=== PATIENT | female | born 1990 | race Caucasian/White ===

== ENCOUNTER 2016-05-07 15:46 | Emergency (ER) | payer MEDICAID ==
[2016-05-07] MEDS ORDERED: ONDANSETRON 4 MG/2 ML VIAL ONE (15:56)
[2016-05-07] MEDS ORDERED: NS 1,000 ML IV ONE ×2 (16:07→16:23)
[2016-05-07] MEDS ORDERED: ONDANSETRON 4 MG/2 ML VIAL IVP ONE (16:07)
[2016-05-07 16:11] VITALS: RESP 18; TEMP 98.5
--- NOTE | 2016-05-07 16:23 | UCPHY ---
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 She tells me she was seen in the clinic earlier today and diagnosed with a urinary tract infection. She denies fever, back pain , chest pain or shortness of breath. Her main complaint is ongoing nausea with vomiting. The vomiting is nonbilious nonbloody. Denies any significant abdominal pain. Past Medical History:Pancreatitis Past Surgical History: denies surgical history Social History: Denies use of drugs, except for daily marijuana use, last smoked marijuana last night, denies alcohol or tobacco Family History: Noncontributory ROS REVIEW OF SYSTEMS: A comprehensive 10 point review of systems is otherwise negative aside from elements mentioned in the history of present illness. Exam Constitutional triage nursing summary reviewed, vital signs reviewed, awake/ alert. Eyes normal conjunctivae and sclera, EOMI, PERRLA. HENT normal inspection, atraumatic, moist mucus membranes, no epistaxis, neck supple/ no meningismus, no raccoon eyes. Respiratory clear to auscultation bilaterally, normal breath sounds, no respiratory distress, no wheezing. Cardiovascular rate normal, regular rhythm, no murmur, no edema, distal pulses normal. Gastrointestinal soft, non-tender, no rebound, no guarding, normal bowel sounds, no distension, no pulsatile mass. Genitourinary no CVA tenderness. Musculoskeletal no midline vertebral tenderness, full range of motion, no calf swelling, no tenderness of extremities, no meningismus, good pulses, neurovascularly intact. Skin pink, warm, & dry, no rash, skin atraumatic. Neurologic awake, alert and oriented x 3, AAOx3, moves all 4 extremities equally, motor intact, sensory intact, CN II-XII intact, normal cerebellar, normal vision, normal speech. Psychiatric normal mood/affect. Heme/Lymph/Immune no lymphadenopathy. Differential Diagnosis: Includes but is not limited to in a particular order, dehydration, electrolyte abnormality, acute nausea vomiting from pancreatitis, acute nausea vomiting from urinary tract infection, pyelonephritis, kidney infection, marijuana induced nausea vomiting Medical Decision Making: This patient had an IV established obtain blood work, patient be hydrated IV fluids, patient received Zofran for nausea. She does also appear anxious she received IV Ativan which may help with her nausea as well. Re-evaluation: 1741: Re-examination at this time this patient is resting comfortably no acute distress. Appears well nontoxic. Not vomiting. Abdomen remained soft. Blood work reviewed and is reassuring urinalysis reviewed is somewhat dirty catch however is nitrite positive. She does have urinary tract infection symptoms. I have sent a culture and IV Rocephin 1 g been given to her. 1817: Re-evaluation at this time this patient is resting comfortably she is not vomiting she has received IV Rocephin for urinary tract infection. I prescribed her Keflex. She understands she develops worsening pain, fever, vomiting to return to the urgent care/emergency room. At this time she appears well she p.o. challenge well no abdominal pain. Feels well enough to go home. She did receive IV Zofran IV Ativan IV fluids. IV Rocephin. Source: Patient - Personal History LMP (Females 10-55): 22-28 Days Ago - Medical/Surgical History Hx Asthma: No Hx Chronic Respiratory Disease: No Hx Diabetes: No Hx Cardiac Disease: No Hx Renal Disease: No Hx Cirrhosis: No Hx Alcoholism: No Hx HIV/AIDS: No Hx Splenectomy or Spleen Trauma: No Other PMH: med hx-pancreatitis. surg-none - Family History Significant Family History: No pertinent family hx - Social History Smoking Status: Former smoker Constitutional: Initial Vital Signs Temperature (C) 36.9 C 05/07/16 15:55 Heart Rate 57 L 05/07/16 15:55 Respiratory Rate 18 05/07/16 15:55 Blood Pressure 151/85 H 05/07/16 15:55 O2 Sat (%) 97 05/07/16 15:55 O2 Delivery Mode Room Air Allergies/Adverse Reactions: No Known Allergies Allergy (Verified 05/07/16 16:08) Home Medications: Medication Instructions Recorded Cephalexin [Keflex] 500 mg PO Q6H #28 cap 05/07/16 Ondansetron HCl [Zofran] 4 mg PO Q4-6PRN PRN #10 tablet 05/07/16 Medical Decision Making - Data Points Laboratory Results: Laboratory Results 05/07/16 16:00 05/07/16 16:00 05/07/16 05/07/16 17:10 16:00 WBC 9.12 10^3/uL (3.80-9.50) RBC 4.67 10^6/uL (4.18-5.33) Hgb 12.9 g/dL (12.6-16.3) Hct 39.7 % (38.0-47.0) MCV 85.0 fL (81.5-99.8) MCH 27.6 L pg (27.9-34.1) MCHC 32.5 g/dL (32.4-36.7) RDW 14.5 % (11.5-15.2) Plt Count 185 10^3/uL (150-400) MPV 12.0 H fL (8.7-11.7) Neut % (Auto) 64.5 % (39.3-74.2) Lymph % (Auto) 27.9 % (15.0-45.0) [place] % (Auto) 6.4 % (4.5-13.0) Eos % (Auto) 0.5 L % (0.6-7.6) Baso % (Auto) 0.5 % (0.3-1.7) Nucleat RBC Rel Count 0.0 % (0.0-0.2) Absolute Neuts (auto) 5.88 10^3/uL (1.70-6.50) Absolute Lymphs (auto) 2.54 10^3/uL (1.00-3.00) Absolute Monos (auto) 0.58 10^3/uL (0.30-0.80) Absolute Eos (auto) 0.05 10^3/uL (0.03-0.40) Absolute Basos (auto) 0.05 10^3/uL (0.02-0.10) Absolute Nucleated RBC 0.00 10^3/uL (0-0.01) Immature Gran % 0.2 % (0.0-1.1) Immature Gran # 0.02 10^3/uL (0.00-0.10) Sodium 142 mEq/L (134-144) Potassium 3.4 L mEq/L (3.5-5.2) Chloride 100 mEq/L (97-110) Carbon Dioxide 22 mEq/l (22-31) Anion Gap 20 H mEq/L (8-16) BUN 20 mg/dL (7-23) Creatinine 0.7 mg/dL (0.6-1.0) Estimated GFR > 60 Glucose 100 mg/dL (70-100) Calcium 9.6 mg/dL (8.5-10.4) Total Bilirubin 1.2 mg/dL (0.1-1.4) Conjugated Bilirubin 0.4 mg/dL (0.0-0.5) Unconjugated Bilirubin 0.8 mg/dL (0.0-1.1) AST 24 IU/L (14-46) ALT 26 IU/L (9-52) Alkaline Phosphatase 62 IU/L (38-126) Total Protein 7.8 g/dL (6.3-8.2) Albumin 4.4 g/dL (3.5-5.0) Lipase 64.0 IU/L (23-300) Beta HCG, Qual NEGATIVE Urine Color YELLOW Urine Appearance CLOUDY Urine pH 6.0 (5.0-7.5) Ur Specific [place] >= 1.030 (1.002-1.030) Urine Protein 2+ H (NEGATIVE) Urine Ketones 3+ H (NEGATIVE) Urine Blood 1+ H (NEGATIVE) Urine Nitrate POSITIVE H (NEGATIVE) Urine Bilirubin NEGATIVE (NEGATIVE) Urine Urobilinogen 0.2 EU (0.2-1.0) Ur Leukocyte Esterase 2+ H (NEGATIVE) Urine RBC 3-5 H /hpf (0-3) Urine WBC 25-50 H /hpf (0-3) Ur Epithelial Cells 3+ H /lpf (NONE-1+) Urine Bacteria 3+ H /hpf (NONE SEEN) Urine Mucus 3+ H /lpf (NONE-1+) Urine Yeast 1+ H /hpf (NONE SEEN) Ur Culture Indicated? INDICATED H (NI) Urine Glucose NEGATIVE (NEGATIVE) Medications Given: Discontinued Medications Sodium Chloride (Ns) 1,000 mls @ 0 mls/hr IV ONCE ONE PRN Reason: Wide Open Stop: 05/07/16 16:08 Last Admin: 05/07/16 16:05 Dose: 1,000 mls Sodium Chloride (Ns) 1,000 mls @ 0 mls/hr IV ONCE ONE PRN Reason: Wide Open Stop: 05/07/16 16:24 Last Admin: 02/10/17 16:50 Dose: 1,000 mls Ceftriaxone Sodium/Dextrose (Rocephin 1 Gm (Premix)) 50 mls @ 100 mls/hr IV EDNOW ONE PRN Reason: Protocol Stop: 05/07/16 18:08 Last Admin: 05/07/16 17:57 Dose: Not Given Lorazepam (Ativan Injection) 1 mg IVP EDNOW ONE Stop: 05/07/16 16:25 Last Admin: 05/07/16 16:40 Dose: 1 mg Ondansetron HCl (Zofran) 4 mg IVP EDNOW ONE Stop: 05/07/16 16:08 Last Admin: 05/07/16 16:05 Dose: 4 mg Departure - Departure Disposition: Home, Routine, Self-Care Clinical Impression: UTI (urinary tract infection) Qualifiers: Urinary tract infection type: acute cystitis Hematuria presence: with hematuria Qualifier Code: (N30.01) Acute cystitis with hematuria Condition: Good Instructions: Urinary Tract Infection in Women (ED), Acute Nausea and Vomiting (ED) Additional Instructions: 1. Drink lots of fluids stay well-hydrated 2. return to the urgent care or emergency room if develops any worsening symptoms questions or concerns. This includes worsening abdominal pain, fever, vomiting Referrals: STEPHANI MCKINNEY [Primary Care Provider] - As per Instructions Prescriptions: Cephalexin [Keflex] 500 mg PO Q6H #28 cap Ondansetron HCl [Zofran] 4 mg PO Q4-6PRN PRN #10 tablet PRN Reason: Nausea/Vomiting, Use 1st - PQRS PQRS Measurement: n/a
[2016-05-07] MEDS ORDERED: LORazepam 2 MG/ML INJ IVP ONE (16:24)
[2016-05-07 16:32] LABS: % IMMATURE GRANULYOCYTES 0.2 % (0.0-1.1); ABSOLUTE IMMATURE GRANULOCYTES 0.02 10^3/uL (0.00-0.10); ADD DIFF? NO; ADD MORPH? NO; ADD SCAN? NO; ATYPICAL LYMPHOCYTE FLAG 30 (0-99); FRAGMENT RBC FLAG 0 (0-99); HEMATOCRIT 39.7 % (38.0-47.0); HEMOGLOBIN 12.9 g/dL (12.6-16.3); LEFT SHIFT FLG 0 (0-99); LIPEMIA HEMOLYSIS FLAG 80 (0-99); MEAN CELL HEMOGLOBIN 27.6 pg (27.9-34.1); MEAN CELL HEMOGLOBIN CONCENTR. 32.5 g/dL (32.4-36.7); PLATELET CLUMPS FLAG 10 (0-99); PLATELET COUNT 185 10^3/uL (150-400); RED BLOOD CELL COUNT 4.67 10^6/uL (4.18-5.33); RED CELL DISTRIBUTION WIDTH 14.5 % (11.5-15.2)
[2016-05-07 16:41] LABS: ALANINE AMINOTRANSFERASE 26 IU/L (9-52); ALBUMIN 4.4 g/dL (3.5-5.0); ALKALINE PHOSPHATASE 62 IU/L (38-126); ANION GAP 20 mEq/L (8-16); ASPARTATE AMINOTRANSFERASE 24 IU/L (14-46); BILIRUBIN,TOTAL 1.2 mg/dL (0.1-1.4); BILIRUBIN-CONJUGATED 0.4 mg/dL (0.0-0.5); BILIRUBIN-UNCONJUGATED 0.8 mg/dL (0.0-1.1); CALCIUM 9.6 mg/dL (8.5-10.4); CARBON DIOXIDE 22 mEq/l (22-31); CHLORIDE 100 mEq/L (97-110); CREATININE 0.7 mg/dL (0.6-1.0); GLOMERULAR FILTRATION RATE > 60; GLUCOSE 100 mg/dL (70-100); POTASSIUM 3.4 mEq/L (3.5-5.2); SODIUM 142 mEq/L (134-144); TOTAL PROTEIN 7.8 g/dL (6.3-8.2)
[2016-05-07 17:18] LABS: COLOR YELLOW; LEUKOCYTE ESTERASE,URINE 2+ (NEGATIVE); NITRITE,URINE POSITIVE (NEGATIVE)
[2016-05-07 17:33] LABS: WBC,URINE 25-50 /hpf (0-3)
[2016-05-07 17:34] LABS: BACTERIA 3+ /hpf (NONE SEEN); MUCUS 3+ /lpf (NONE-1+); YEAST 1+ /hpf (NONE SEEN)
[2016-05-07] MEDS ORDERED: cefTRIAXone 1 GM VIAL ONE (17:50)
[2016-05-07] MEDS ORDERED: NS 100 ML BAG (MINI-BAG) IV ONE (17:50)
[2016-05-07 21:03] VITALS: O2SAT 100
[2016-05-07 21:04] VITALS: BP 126/84; PULSE 58
== END 2016-05-07 18:40 | disposition home or self-care (01) ==
LOC: CED 15:46
DX: N39.0 Urinary tract infection, site not specified (principal)
CPT/HCPCS: 80048-PO; 80076-PO; 81003-PO; 81015-PO; 83690-PO; 84703-PO; 85025-PO; 96361-PO; 96365-PO; 96375-PO; 99215-PO; G0463-PO; J0696; J2405

== ENCOUNTER 2016-09-16 10:20 | Emergency (ER) | payer SELFPAY ==
[2016-09-16] MEDS ORDERED: NS 1,000 ML IV ONE ×2 (10:28→11:35)
[2016-09-16] MEDS ORDERED: ONDANSETRON 4 MG/2 ML VIAL IVP ONE (10:30)
[2016-09-16] MEDS ORDERED: HALOPERIDOL LACT 5 MG/ML INJ IVP ONE ×2 (10:45→12:41)
[2016-09-16] MEDS ORDERED: PROMETHAZINE HCL 25 MG/ML INJ IVP ONE (10:47)
[2016-09-16 10:53] LABS: % IMMATURE GRANULYOCYTES 0.3 % (0.0-1.1); ABSOLUTE IMMATURE GRANULOCYTES 0.04 10^3/uL (0.00-0.10); ADD DIFF? NO; ADD MORPH? NO; ADD SCAN? NO; ATYPICAL LYMPHOCYTE FLAG 0 (0-99); FRAGMENT RBC FLAG 0 (0-99); HEMATOCRIT 35.9 % (38.0-47.0); HEMOGLOBIN 11.8 g/dL (12.6-16.3); LEFT SHIFT FLG 0 (0-99); LIPEMIA HEMOLYSIS FLAG 80 (0-99); MEAN CELL HEMOGLOBIN 27.4 pg (27.9-34.1); MEAN CELL HEMOGLOBIN CONCENTR. 32.9 g/dL (32.4-36.7); MEAN CELL VOLUME 83.5 fL (81.5-99.8); MEAN PLATELET VOLUME 11.8 fL (8.7-11.7); PLATELET CLUMPS FLAG 0 (0-99); PLATELET COUNT 241 10^3/uL (150-400); RED CELL DISTRIBUTION WIDTH 14.6 % (11.5-15.2)
[2016-09-16 11:05] LABS: ALANINE AMINOTRANSFERASE 22 IU/L (9-52); ALBUMIN 4.6 g/dL (3.5-5.0); ALKALINE PHOSPHATASE 66 IU/L (38-126); ANION GAP 20 mEq/L (8-16); ASPARTATE AMINOTRANSFERASE 22 IU/L (14-46); BILIRUBIN,TOTAL 1.3 mg/dL (0.1-1.4); BILIRUBIN-CONJUGATED 0.4 mg/dL (0.0-0.5); BILIRUBIN-UNCONJUGATED 0.9 mg/dL (0.0-1.1); CARBON DIOXIDE 21 mEq/l (22-31); CHLORIDE 103 mEq/L (97-110); CREATININE 0.6 mg/dL (0.6-1.0); GLOMERULAR FILTRATION RATE > 60; GLUCOSE 114 mg/dL (70-100); POTASSIUM 3.7 mEq/L (3.5-5.2); SODIUM 144 mEq/L (134-144); TOTAL PROTEIN 8.1 g/dL (6.3-8.2)
--- NOTE | 2016-09-16 11:13 | EDPHY ---
H & P Stated Complaint: N/V x 2 days marijuana use prior to onset .hx of same Time Seen by Provider: 09/16/16 10:34 HPI/ROS: CHIEF COMPLAINT: Bilious vomiting HISTORY OF PRESENT ILLNESS: This is a 26-year-old female who reports that she developed vomiting 24 hours ago. She describes multiple bouts of bilious vomiting and abdominal pain. No diarrhea. No documented fever. No blood in the vomit. Also complaining of severe abdominal discomfort. She reports she has had similar symptoms approximately 2 times a year. Her father reports that she was diagnosed with pancreatitis many years ago. She does have history of alcohol abuse. She reports daily marijuana use. Denies illicit drug use. Patient denies any recent travel. No diarrhea. No urinary complaints. No lightheadedness or dizziness. No fever, chills, chest pain, shortness of breath, palpitations. REVIEW OF SYSTEMS: Aside from elements discussed in the HPI, a comprehensive 10-point review of systems was reviewed and is negative. PAST MEDICAL HISTORY: Pancreatitis. SOCIAL HISTORY: Positive marijuana use. Prior history of alcohol abuse. VITAL SIGNS Reviewed by me. No hypertension or tachycardia. GENERAL: Well-developed, well-nourished, patient is holding a emesis basin with bilious vomitus. No blood. During the examination she is spitting frequently into the emesis basin. HEENT: Atraumatic. Eyes: No icterus, no injection. Mouth: Tacky mucous membranes. No erythema or lesions. Neck: supple with no adenopathy. LUNGS: Clear to auscultation bilaterally, no wheezes, rhonchi or rales. CARDIAC: Regular rate and rhythm, no rubs, murmurs or gallops. ABDOMEN: Nondistended. Voluntary guarding throughout. Diffusely tender with epigastric and lower abdominal tenderness most significant. BACK: No CVA tenderness. EXTREMITIES: No trauma. No edema. Range of motion is normal throughout. NEURO: Alert and oriented, grossly nonfocal. SKIN: Warm and dry, no rash. PSYCHIATRIC: Normal mentation, no agitation. - Personal History LMP (Females 10-55): 22-28 Days Ago Current Tetanus Diphtheria and Acellular Pertussis (TDAP): Yes - Medical/Surgical History Hx Asthma: No Hx Chronic Respiratory Disease: No Hx Diabetes: No Hx Cardiac Disease: No Hx Renal Disease: No Hx Cirrhosis: No Hx Alcoholism: No Hx HIV/AIDS: No Hx Splenectomy or Spleen Trauma: No Other PMH: med hx-pancreatitis. surg-none. Marijuana use. Frequent vomiting cyclic - Social History Smoking Status: Current every day smoker Constitutional: Initial Vital Signs Heart Rate 52 L 09/16/16 10:25 Respiratory Rate 20 09/16/16 10:25 Blood Pressure 143/83 H 09/16/16 10:25 O2 Sat (%) 98 09/16/16 10:25 O2 Delivery Mode Room Air Allergies/Adverse Reactions: No Known Allergies Allergy (Verified 09/16/16 10:37) Home Medications: Medication Instructions Recorded Ondansetron HCl [Zofran] 4 mg PO Q4-6PRN PRN #10 tablet 05/07/16 Ondansetron Odt [Zofran Odt 4 mg 4 mg PO Q6 PRN #8 tab 09/16/16 (RX)] Promethazine HCl [Phenergan 25mg 25 mg PO BID PRN #10 tab 09/16/16 (*)] Medical Decision Making ED Course/Re-evaluation: IV was established. Patient received Zofran as well as Phenergan. Laboratory evaluation demonstrates a normal lipase, normal LFTs, patient is slightly dehydrated with a CO2 [place] [address]. Not . Patient reexamined after 1 liter of saline. Pain has much improved; nausea improving also. Up to bathroom. Haldol and Toradol given 2nd liter given. After 2nd liter of NS, patient is feeling quite well. Pain resolved. Tolerating po's without vomiting. Discharged with zofran and phenergan prescriptions. Strongly advised regarding cessation of cannabinoids. Differential Diagnosis: After obtaining the patients history and performing an examination, differential diagnosis considered included but was not limited to appendicitis, cholecystitis, gastritis, pancreatitis, cannaboid hyperemesis syndrome, kidney stones, urinary tract infections and other causes. - Data Points Laboratory Results: Laboratory Results 09/16/16 10:42 09/16/16 10:42 09/16/16 09/16/16 12:10 10:42 Urine Color YELLOW Urine Appearance CLEAR Urine pH 6.0 (5.0-7.5) Ur Specific [place] >= 1.030 (1.002-1.030) Urine Protein 2+ H (NEGATIVE) Urine Ketones 1+ H (NEGATIVE) Urine Blood NEGATIVE (NEGATIVE) Urine Nitrate NEGATIVE (NEGATIVE) Urine Bilirubin NEGATIVE (NEGATIVE) Urine Urobilinogen 0.2 EU EU (0.2-1.0) Ur Leukocyte Esterase NEGATIVE (NEGATIVE) Urine RBC 3-5 /hpf H /hpf (0-3) Urine WBC 10-15 /hpf H /hpf (0-3) Ur Epithelial Cells 2+ /lpf H /lpf (NONE-1+) Urine Bacteria 1+ /hpf H /hpf (NONE SEEN) Urine Mucus 3+ /lpf H /lpf (NONE-1+) Urine Glucose NEGATIVE (NEGATIVE) Ethyl Alcohol < 10 mg/dL mg/dL (0-10) Medications Given: Discontinued Medications Diphenhydramine HCl (Benadryl Injection) 25 mg IVP EDNOW ONE Stop: 09/16/16 10:46 Last Admin: 09/16/16 11:03 Dose: 25 mg Haloperidol Lactate (Haldol Injection) 2.5 mg IVP EDNOW ONE Stop: 09/16/16 10:46 Last Admin: 09/16/16 11:11 Dose: Not Given Haloperidol Lactate (Haldol Injection) 2.5 mg IVP EDNOW ONE Stop: 09/16/16 12:42 Last Admin: 09/16/16 12:50 Dose: 2.5 mg Sodium Chloride (Ns) 1,000 mls @ 0 mls/hr IV ONCE ONE PRN Reason: Wide Open Stop: 09/16/16 10:29 Last Admin: 09/16/16 10:40 Dose: 1,000 mls Sodium Chloride (Ns) 1,000 mls @ 0 mls/hr IV ONCE ONE PRN Reason: Wide Open Stop: 09/16/16 11:36 Last Admin: 09/16/16 11:38 Dose: 1,000 mls Ketorolac Tromethamine (Toradol) 15 mg IVP EDNOW ONE Stop: 09/16/16 12:42 Last Admin: 09/16/16 12:50 Dose: 15 mg Ondansetron HCl (Zofran) 4 mg IVP EDNOW ONE Stop: 09/16/16 10:31 Last Admin: 09/16/16 10:45 Dose: 4 mg Promethazine HCl (Phenergan) 12.5 mg IVP EDNOW ONE Stop: 09/16/16 10:48 Last Admin: 09/16/16 11:00 Dose: 12.5 mg Departure - Departure Disposition: Home, Routine, Self-Care Clinical Impression: Nausea & vomiting Qualifiers: Vomiting type: unspecified Vomiting Intractability: non-intractable Qualified Code(s): R11.2 - Nausea with vomiting, unspecified Condition: Good Instructions: Acute Nausea and Vomiting (ED) Additional Instructions: You been given a prescription for Zofran to use as needed for recurrent nausea and vomiting. You have also been given a prescription for Phenergan to use as needed for nausea and vomiting. Phenergan may sometimes make you somewhat sleepy. For your abdominal pain, nausea, vomiting, I suggested you start with a bland diet and advance as tolerated. This means start with clear liquids such as water, Gatorade, juice, flat non- caffeinated soda. If you tolerate clear liquids, then you may add bland foods such as bananas, rice, or toast. If you do not have any worsening of your symptoms, you may begin to resume a regular diet. I am concerned that your symptoms may represent cannabinoid hyperemesis syndrome. I would suggest that you stop using marijuana products and stop smoking marijuana. If your symptoms recur and are not managed by the above medications, you may return to the emergency department. Referrals: STEPHANI MCKINNEY [Primary Care Provider] - As per Instructions Stand Alone Forms: Work Excuse Prescriptions: Ondansetron Odt [Zofran Odt 4 mg (RX)] 4 mg PO Q6 PRN #8 tab PRN Reason: Nausea Promethazine HCl [Phenergan 25mg (*)] 25 mg PO BID PRN #10 tab PRN Reason: nausea and vomiting
[2016-09-16 11:35] VITALS: RESP 16
[2016-09-16 12:05] LABS: ETHANOL SERUM < 10 mg/dL (0-10)
[2016-09-16 12:23] LABS: COLOR YELLOW; LEUKOCYTE ESTERASE,URINE NEGATIVE (NEGATIVE); NITRITE,URINE NEGATIVE (NEGATIVE)
[2016-09-16 12:33] LABS: BACTERIA 1+ /hpf (NONE SEEN); MUCUS 3+ /lpf (NONE-1+)
[2016-09-16] MEDS ORDERED: KETOROLAC 15 MG/1 ML SDV IVP ONE (12:41)
[2016-09-16 13:19] VITALS: BP 113/66; PULSE 59; TEMP 98.8; O2SAT 97
== END 2016-09-16 13:23 | disposition home or self-care (01) ==
LOC: CED 10:20
DX: R11.2 Nausea with vomiting, unspecified (principal); F17.200 Nicotine dependence, unspecified, uncomplicated
CPT/HCPCS: 80048-PO; 80076-PO; 81003-PO; 81015-PO; 83690-PO; 84703-PO; 85025-PO; 96374; G0480; J1200; J1885; J2405; J2550

== ENCOUNTER 2017-02-09 23:25 | Emergency (ER) | payer MEDICAID ==
[2017-02-09] MEDS ORDERED: ONDANSETRON 4 MG/2 ML VIAL IVP ONE (23:35)
[2017-02-09 23:38] VITALS: RESP 15; TEMP 98.4
--- NOTE | 2017-02-09 23:39 | EDPHY ---
H & P Time Seen by Provider: 02/09/17 23:34 HPI/ROS: CC: upper abdominal pain and vomiting HPI: This 27-year-old female with past medical history of pancreatitis, as well as vomiting thought to be due to marijuana use, presents to the emergency department tonlona complaining of epigastric pain and vomiting that started 3 days ago then resolved. She states the pain started up again tonight at 8:00 p.m.. She has been having nausea and vomiting as well. She states she has not used marijuana since the weekend. She does not feel that her prior episodes of abdominal pain and vomiting or tonight's episode is due to marijuana. The vomiting is worse with food. She has not had a fever. The pain is severe and is localized to the upper abdominal area. She has not had a fever. She denies diarrhea but has been mildly constipated. She denies dysuria. She is currently sexually active but uses condoms and denies . She has had vaginal discharge as well as scant vaginal bleeding today even though her last menstrual period was just 2 weeks ago. She is 1 para 0 having had a miscarriage many years ago. She has a follow-up appointment with her primary care provider at [facility] this Tuesday (2 days). REVIEW OF SYSTEMS: Constitutional: No fever, no chills. Eyes: No discharge. ENT: No sore throat. Respiratory: No cough, no shortness of breath. Cardiac: No chest pain, no palpitations. Gastrointestinal: See HPI. Genitourinary: No hematuria. Musculoskeletal: No back pain. Skin: No rashes. Neurological: No headache. Source: Patient Exam Limitations: Other (Groaning in pain. Limited answers.) - Personal History LMP (Females 10-55): 8-14 Days Ago - Medical/Surgical History PMH: PMH: Pancreatitis, anemia, cyclical vomiting, marijuana use, h/o ETOH abuse PSH: Denied FH: Denied Allergies: Denied Medications: Denied (Zofran ODT makes her vomit) PCP: Cheyenne Franklin Hx Asthma: No Hx Chronic Respiratory Disease: No Hx Diabetes: No Hx Cardiac Disease: No Hx Renal Disease: No Hx Cirrhosis: No Hx Alcoholism: No Hx HIV/AIDS: No Hx Splenectomy or Spleen Trauma: No Other PMH: med hx-pancreatitis. surg-none. Marijuana use. Frequent vomiting cyclic - Family History Significant Family History: No pertinent family hx - Social History Smoking Status: Current every day smoker Alcohol Use: None (h/o abuse per prior record) Drug Use: Marijuana - Physical Exam Exam: General Appearance: Slightly drowsy appearing, severe distress. Eyes: Pupils equal and round no pallor or injection. ENT, Mouth: Mucous membranes are slightly dry. Respiratory: There are no retractions, lungs are clear to auscultation. Cardiovascular: Regular rate and rhythm. Gastrointestinal: Abdomen is soft with moderate to severe tenderness to palpation across the upper abdomen and mild discomfort over the suprapubic region to palpation. No RLQ pain with palpation. No masses, rebound, guarding or rigidity. Bowel sounds normal. Neurological: Sensory and motor exams grossly normal. Ambulates without assistance. Skin: Warm and dry, no rashes. Musculoskeletal: Neck is supple nontender. Extremities are symmetrical, full range of motion. Psychiatric: Patient is oriented X 3, there is no agitation. Pelvic exam: The vulva was normal no lesions. The vagina did not have significant discharge. The cervix was closed with scant bloody mucus at os and no purulent drainage. The uterus was normal size and nontender. The adnexa had no masses and no tenderness. The exam was performed with a biology lecturer (ISAURA Fitzpatrick). DIFFERENTIAL DIAGNOSIS: After history and physical exam differential diagnosis was considered for but not limited to: pancreatitis, cholecystitis, biliary colic, bowel perforation, gastritis, appendicitis, cannabinoid hyperemesis syndrome, dehydration, UTI, PID. Constitutional: Initial Vital Signs Temperature (C) 98.4 F 02/09/17 23:35 Heart Rate 73 02/09/17 23:35 Respiratory Rate 15 02/09/17 23:35 Blood Pressure 153/80 H 02/09/17 23:35 O2 Sat (%) 96 02/09/17 23:35 O2 Delivery Mode Room Air Allergies/Adverse Reactions: No Known Allergies Allergy (Verified 09/16/16 10:37) Home Medications: Medication Instructions Recorded Promethazine HCl [Phenergan 25 mg FL Q6H PRN 5 Days #12 suppr 02/10/17 Rectal] Medical Decision Making - Diagnostics Imaging Results: Upright 1 view Abdomen: Negative Imaging: I viewed and interpreted images myself Procedures: Patient was seen and examined. Vital signs were reviewed. A CBC showed a slightly elevated neutrophil count. Her comprehensive metabolic panel showed an elevated bilirubin at 1.7 with a conjugated bilirubin of 0.6. Normal transaminases. Her potassium is slightly low at 3.3. Her bicarb was low at 19 with an anion gap of 25. Her lactic acid is normal. Urinalysis shows 3+ ketones. She is not . She was given a L of IV fluids for hydration with good result, and Zofran 4 mg IV push as well as Benadryl 25 mg IV push for her nausea and vomiting with good result. She then received Haldol 2.5 mg IV push which almost completely relieved her abdominal discomfort. A pelvic exam was performed and gonorrhea/chlamydia as well as bacterial vaginosis results are pending. There was no significant vaginal discharge noted but there was a small amount of blood-tinged mucus at the cervical os. She had no cervical motion tenderness or adnexal tenderness on bimanual exam. Due to the patient stating she vomits every time she takes oral dissolving Zofran, she was given a take-home pack of rectal Phenergan as well as a prescription for rectal Phenergan. I have advised her that [id number] Benadryl often works for vomiting as well. She will follow up with her primary care provider on this Tuesday which is just 36 hours away. I have instructed her to have them follow up on her pelvic swabs and have asked her to discuss whether they would like her to have abdominal imaging such as an abdominal ultrasound and or HIDA scan and possibly a pelvic ultrasound due to the abnormal vaginal bleeding. She will return to the emergency room if increased pain, changing symptoms, persistent vomiting, fever, or any other concerns. I have also advised her to discontinue all marijuana use. - Data Points Laboratory Results: Laboratory Results 02/09/17 23:40 02/09/17 23:40 02/10/17 02/10/17 02/10/17 01:33 01:33 00:23 WBC RBC Hgb Hct MCV MCH MCHC RDW Plt Count MPV Neut % (Auto) Lymph % (Auto) [place] % (Auto) Eos % (Auto) Baso % (Auto) Nucleat RBC Rel Count Absolute Neuts (auto) Absolute Lymphs (auto) Absolute Monos (auto) Absolute Eos (auto) Absolute Basos (auto) Absolute Nucleated RBC Immature Gran % Immature Gran # VBG Lactic Acid Sodium Potassium Chloride Carbon Dioxide Anion Gap BUN Creatinine Estimated GFR Glucose Calcium Total Bilirubin Conjugated Bilirubin Unconjugated Bilirubin AST ALT Alkaline Phosphatase Total Protein Albumin Lipase Beta HCG, Qual Urine Color YELLOW Urine Appearance CLEAR Urine pH 6.0 (5.0-7.5) Ur Specific [place] >= 1.030 (1.002-1.030) Urine Protein 1+ H (NEGATIVE) Urine Ketones 3+ H (NEGATIVE) Urine Blood NEGATIVE (NEGATIVE) Urine Nitrate NEGATIVE (NEGATIVE) Urine Bilirubin NEGATIVE (NEGATIVE) Urine Urobilinogen 0.2 EU EU (0.2-1.0) Ur Leukocyte Esterase NEGATIVE (NEGATIVE) Urine RBC NONE SEEN /hpf /hpf (0-3) Urine WBC 1-3 /hpf /hpf (0-3) Ur Epithelial Cells 2+ /lpf H /lpf (NONE-1+) Urine Bacteria NONE SEEN /hpf /hpf (NONE SEEN) Urine Mucus 2+ /lpf H /lpf (NONE-1+) Urine Glucose NEGATIVE (NEGATIVE) Shannan species DNA Pending C.trachomatis RNA (TMA) Pending Gardnerella DNA Probe Pending N.gonorrhoeae RNA (TMA) Pending Trichomonas DNA Probe Pending 02/09/17 02/09/17 02/09/17 23:40 23:40 23:40 WBC 9.99 10^3/uL H 10^3/uL (3.80-9.50) RBC 4.89 10^6/uL 10^6/uL (4.18-5.33) Hgb 13.5 g/dL g/dL (12.6-16.3) Hct 41.3 % % (38.0-47.0) MCV 84.5 fL fL (81.5-99.8) MCH 27.6 pg L pg (27.9-34.1) MCHC 32.7 g/dL g/dL (32.4-36.7) RDW 14.6 % % (11.5-15.2) Plt Count 299 10^3/uL 10^3/uL (150-400) MPV 11.3 fL fL (8.7-11.7) Neut % (Auto) 81.8 % H % (39.3-74.2) Lymph % (Auto) 13.9 % L % (15.0-45.0) [place] % (Auto) 3.7 % L % (4.5-13.0) Eos % (Auto) 0.0 % L % (0.6-7.6) Baso % (Auto) 0.4 % % (0.3-1.7) Nucleat RBC Rel Count 0.0 % % (0.0-0.2) Absolute Neuts (auto) 8.17 10^3/uL H 10^3/uL (1.70-6.50) Absolute Lymphs (auto) 1.39 10^3/uL 10^3/uL (1.00-3.00) Absolute Monos (auto) 0.37 10^3/uL 10^3/uL (0.30-0.80) Absolute Eos (auto) 0.00 10^3/uL L 10^3/uL (0.03-0.40) Absolute Basos (auto) 0.04 10^3/uL 10^3/uL (0.02-0.10) Absolute Nucleated RBC 0.00 10^3/uL 10^3/uL (0-0.01) Immature Gran % 0.2 % % (0.0-1.1) Immature Gran # 0.02 10^3/uL 10^3/uL (0.00-0.10) VBG Lactic Acid Sodium 140 mEq/L mEq/L (134-144) Potassium 3.3 mEq/L L mEq/L (3.5-5.2) Chloride 96 mEq/L L mEq/L (97-110) Carbon Dioxide 19 mEq/l L mEq/l (22-31) Anion Gap 25 mEq/L H mEq/L (8-16) BUN 20 mg/dL mg/dL (7-23) Creatinine 0.8 mg/dL mg/dL (0.6-1.0) Estimated GFR > 60 Glucose 96 mg/dL mg/dL (70-100) Calcium 10.3 mg/dL mg/dL (8.5-10.4) Total Bilirubin 1.7 mg/dL H mg/dL (0.1-1.4) Conjugated Bilirubin 0.6 mg/dL H mg/dL (0.0-0.5) Unconjugated Bilirubin 1.1 mg/dL mg/dL (0.0-1.1) AST 23 IU/L IU/L (14-46) ALT 38 IU/L IU/L (9-52) Alkaline Phosphatase 70 IU/L IU/L (38-126) Total Protein 8.9 g/dL H g/dL (6.3-8.2) Albumin 5.4 g/dL H g/dL (3.5-5.0) Lipase 94 IU/L IU/L (23-300) Beta HCG, Qual NEGATIVE Urine Color Urine Appearance Urine pH Ur Specific [place] Urine Protein Urine Ketones Urine Blood Urine Nitrate Urine Bilirubin Urine Urobilinogen Ur Leukocyte Esterase Urine RBC Urine WBC Ur Epithelial Cells Urine Bacteria Urine Mucus Urine Glucose Shannan species DNA C.trachomatis RNA (TMA) Gardnerella DNA Probe N.gonorrhoeae RNA (TMA) Trichomonas DNA Probe 02/09/17 23:40 WBC RBC Hgb Hct MCV MCH MCHC RDW Plt Count MPV Neut % (Auto) Lymph % (Auto) [place] % (Auto) Eos % (Auto) Baso % (Auto) Nucleat RBC Rel Count Absolute Neuts (auto) Absolute Lymphs (auto) Absolute Monos (auto) Absolute Eos (auto) Absolute Basos (auto) Absolute Nucleated RBC Immature Gran % Immature Gran # VBG Lactic Acid 1.9 mmol/L mmol/L (0.7-2.1) Sodium Potassium Chloride Carbon Dioxide Anion Gap BUN Creatinine Estimated GFR Glucose Calcium Total Bilirubin Conjugated Bilirubin Unconjugated Bilirubin AST ALT Alkaline Phosphatase Total Protein Albumin Lipase Beta HCG, Qual Urine Color Urine Appearance Urine pH Ur Specific [place] Urine Protein Urine Ketones Urine Blood Urine Nitrate Urine Bilirubin Urine Urobilinogen Ur Leukocyte Esterase Urine RBC Urine WBC Ur Epithelial Cells Urine Bacteria Urine Mucus Urine Glucose Shannan species DNA C.trachomatis RNA (TMA) Gardnerella DNA Probe N.gonorrhoeae RNA (TMA) Trichomonas DNA Probe Medications Given: Discontinued Medications Diphenhydramine HCl (Benadryl Injection) 25 mg IVP EDNOW ONE Stop: 02/10/17 00:21 Last Admin: 02/10/17 00:25 Dose: 25 mg Haloperidol Lactate (Haldol Injection) 2.5 mg IVP EDNOW ONE Stop: 02/10/17 01:12 Last Admin: 02/10/17 01:15 Dose: 2.5 mg Sodium Chloride (Ns) 1,000 mls @ 0 mls/hr IV ONCE ONE; Wide Open PRN Reason: Protocol Stop: 02/10/17 00:20 Last Admin: 02/10/17 00:24 Dose: 1,000 mls Ondansetron HCl (Zofran) 4 mg IVP EDNOW ONE Stop: 02/09/17 23:36 Last Admin: 02/09/17 23:42 Dose: 4 mg Departure - Departure Disposition: Home, Routine, Self-Care Clinical Impression: Intermittent epigastric abdominal pain, Nausea and vomiting in adult, Dehydration, Suprapubic abdominal pain Condition: Good Instructions: Promethazine (Into the rectum), Dehydration (ED), Hypokalemia (ED ), Acute Nausea and Vomiting (ED), Acute Abdominal Pain (ED) Additional Instructions: Keep your follow up appointment on Tuesday at [facility] as scheduled. Have them review the pelvic swab results for GC/Chlamydia and Bacterial Vaginosis which are still pending. Discuss if they would like you to have abdominal imaging such as Abdominal Ultrasound or HIDA scan. If abnormal vaginal bleeding, consider a pelvic Ultrasound. Drink plenty of fluids. Follow a bland diet and advance as tolerated. Eat foods high in potassium. Discontinue marijuana products. Use the Phenergan Rectal Suppositories as needed for nausea or vomiting. Over- the-counter Benadryl (Diphenhydramine) often works well for nausea. Return to the ED immediately if increased abdominal pain, persistent vomiting, fever or any other concerns. Referrals: Patient,NotPresent [Primary Care Provider] - As per Instructions [facility] - 02/11/17 Prescriptions: Promethazine HCl [Phenergan Rectal] 25 mg FL Q6H PRN 5 Days #12 suppr PRN Reason: nausea and vomiting
[2017-02-09 23:51] LABS: % IMMATURE GRANULYOCYTES 0.2 % (0.0-1.1); ABSOLUTE IMMATURE GRANULOCYTES 0.02 10^3/uL (0.00-0.10); ADD DIFF? NO; ADD MORPH? NO; ADD SCAN? NO; ATYPICAL LYMPHOCYTE FLAG 10 (0-99); FRAGMENT RBC FLAG 0 (0-99); HEMATOCRIT 41.3 % (38.0-47.0); HEMOGLOBIN 13.5 g/dL (12.6-16.3); LEFT SHIFT FLG 0 (0-99); LIPEMIA HEMOLYSIS FLAG 80 (0-99); MEAN CELL HEMOGLOBIN 27.6 pg (27.9-34.1); MEAN CELL HEMOGLOBIN CONCENTR. 32.7 g/dL (32.4-36.7); MEAN CELL VOLUME 84.5 fL (81.5-99.8); MEAN PLATELET VOLUME 11.3 fL (8.7-11.7); PLATELET CLUMPS FLAG 0 (0-99); PLATELET COUNT 299 10^3/uL (150-400); RED BLOOD CELL COUNT 4.89 10^6/uL (4.18-5.33); RED CELL DISTRIBUTION WIDTH 14.6 % (11.5-15.2)
[2017-02-10 00:05] LABS: ALANINE AMINOTRANSFERASE 38 IU/L (9-52); ALBUMIN 5.4 g/dL (3.5-5.0); ALKALINE PHOSPHATASE 70 IU/L (38-126); ANION GAP 25 mEq/L (8-16); ASPARTATE AMINOTRANSFERASE 23 IU/L (14-46); BILIRUBIN,TOTAL 1.7 mg/dL (0.1-1.4); BILIRUBIN-CONJUGATED 0.6 mg/dL (0.0-0.5); BILIRUBIN-UNCONJUGATED 1.1 mg/dL (0.0-1.1); CALCIUM 10.3 mg/dL (8.5-10.4); CARBON DIOXIDE 19 mEq/l (22-31); CHLORIDE 96 mEq/L (97-110); CREATININE 0.8 mg/dL (0.6-1.0); GLOMERULAR FILTRATION RATE > 60; GLUCOSE 96 mg/dL (70-100); POTASSIUM 3.3 mEq/L (3.5-5.2); SODIUM 140 mEq/L (134-144); TOTAL PROTEIN 8.9 g/dL (6.3-8.2)
[2017-02-10] MEDS ORDERED: NS 1,000 ML IV ONE (00:19)
[2017-02-10 00:31] LABS: COLOR YELLOW; LEUKOCYTE ESTERASE,URINE NEGATIVE (NEGATIVE); NITRITE,URINE NEGATIVE (NEGATIVE)
[2017-02-10 00:41] LABS: MUCUS 2+ /lpf (NONE-1+); RBC,URINE NONE SEEN /hpf (0-3)
[2017-02-10 00:42] LABS: BACTERIA NONE SEEN /hpf (NONE SEEN)
[2017-02-10] MEDS ORDERED: HALOPERIDOL LACT 5 MG/ML INJ IVP ONE (01:11)
[2017-02-10] MEDS ORDERED: PROMETHAZINE 25 MG PREPACK #4 BTL TAKEHOME ONE (01:38)
[2017-02-10] MEDS ORDERED: PROMETHAZINE 25MG SUPP PREPK#4 BTL TAKEHOME ONE (01:45)
[2017-02-10 02:09] VITALS: BP 101/59; PULSE 65; O2SAT 95
[2017-02-11 12:10] LABS: CHLAMYDIA AMPLIFICATION GENPRB NEGATIVE (NEGATIVE)
== END 2017-02-10 02:04 | disposition home or self-care (01) ==
LOC: CED 23:25
DX: R10.13 Epigastric pain (principal); E86.0 Dehydration; E86.9 Volume depletion, unspecified; F17.200 Nicotine dependence, unspecified, uncomplicated
CPT/HCPCS: 74000-PO; 80048-PO; 80076-PO; 81003-PO; 81015-PO; 83605-PO; 83690-PO; 84703-PO; 85025-PO; 96374; J1200; J2405

== ENCOUNTER 2017-05-20 11:03 | Emergency (ER) | payer MEDICAID ==
[2017-05-20] MEDS ORDERED: FAMOTIDINE 20 MG in NS 100 ML IV ONE ×2 (11:20→11:25)
[2017-05-20] MEDS ORDERED: KETOROLAC 30 MG/1 ML SDV IVP ONE (11:20)
[2017-05-20] MEDS ORDERED: ONDANSETRON 4 MG/2 ML VIAL IVP ONE (11:20)
[2017-05-20] MEDS ORDERED: NS 1,000 ML IV ONE ×2 (11:20→12:19)
[2017-05-20] MEDS ORDERED: FAMOTIDINE 20 MG/2 ML SDV IVP ONE (11:26)
--- NOTE | 2017-05-20 11:30 | EDPHY ---
H & P Time Seen by Provider: 05/20/17 11:10 HPI/ROS: HPI Vomiting and constipation. 27-year-old female by private vehicle with her father. This patient presents to the emergency department with complaint of constipation as well as vomiting. She reports that her last bowel movement was last Tuesday. She reports that she felt she was constipated and gave herself an enema at 1:00 p.m. Yesterday afternoon. She had good production of stool with this. However, she then started feeling nauseous and started vomiting. She reports that she has been vomiting throughout yesterday afternoon and last night. She reports that she tried to eat a strawberry this morning and she vomited this up. This was her last oral intake. She reports that today she has continued felt nausea with vomiting and also has some lower back pain and some lower abdominal pain. Which she describes as achy and worse in her right lower quadrant. This has not been similar to her presentations in our emergency department in the past related to these complaints. She has been seen in our emergency department multiple times in the past. She has a vague history of pancreatitis as well as constipation thought to be diet and stress related. 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 ROS: Constitutional: No fever, no chills. No weakness. Eyes: No discharge. No changes in vision. ENT: No sore throat. No nasal congestion or rhinorrhea. Respiratory: No cough. No shortness of breath. Cardiac: No chest pain, no palpitations. Gastrointestinal: As above. Genitourinary: No hematuria. No dysuria or increased frequency with urination. Musculoskeletal: As above. No neck pain. No myalgias or arthralgias. Skin: No rashes. Neurological: No headache. No focal weakness or altered sensation. Past medical history: Cyclic vomiting thought to be secondary to marijuana use , pancreatitis, anemia, history of alcohol abuse. Social history: She is sexually active. She uses condoms. No control. Nonsmoker. She is currently here with her father. Denies alcohol use currently. No IV drugs or street drugs. Physical Exam: General Appearance: Alert, no distress but mildly anxious. This patient is responding to questions appropriately and in full sentences. This patient appears well-hydrated and well-nourished. Eyes: Pupils equal and round no pallor or injection. No lid edema, erythema or injection. Respiratory: There are no retractions, lungs are clear to auscultation with good air movement bilaterally. Cardiovascular: Regular rate and rhythm. No murmur. Gastrointestinal: Abdomen is soft with vague right lower quadrant tenderness on palpation, no masses, bowel sounds normal. No focal tenderness at McBurney' s point. No Nam sign. Back exam: No midline thoracic, lumbar, sacral tenderness on palpation. Vague tenderness over the bilateral sacroiliac joints. Gross examination of the gluteal, sacral and coccyx area does not reveal any evidence of abscess or soft tissue abnormality. Neurological: Motor sensory function is grossly intact. Cranial nerves are normal. Gait is normal. Skin: Warm and dry, no rashes. Musculoskeletal: Neck is supple and nontender. Extremities are symmetrical. All joints range without pain or impingement. Psychiatric: No agitation. No depression. Database: EKG: Imaging: CT scan of abdomen and pelvis with IV contrast: The appendix was not well visualized. However, there was no inflammatory changes or other findings consistent with appendicitis. This study was otherwise unremarkable. Results were discussed with staff radiologist Dr. Myron Aranda. Procedures: Emergency department course: Her vital signs were reviewed and are normal. She has no contraindications to NSAIDs. She was started on IV normal saline with 1 L to be given over the next hour. She was initially given 30 mg of IV Toradol, 20 mg of IV Pepcid and 4 mg of IV Zofran. 12:45 p.m., patient re-evaluated. She is feeling better at this time. Results of her CT scan and blood work discussed with her. Urinalysis results pending. 1:05 p.m., patient re-evaluated. Results of urinalysis discussed. She feels comfortable going home at this time. She is taking oral fluids without issue. Repeat abdominal exam she is soft, nontender nondistended. Her father is present in the room. Follow-up and return to emergency department precautions reviewed with the 2 of them. All of their questions were answered. The patient was discharged home in good condition. Differential Diagnosis: The differential diagnosis on this patient includes but is not limited to cyclic vomiting syndrome, constipation, appendicitis, ureterolithiasis, pancreatitis. This represents a partial list of diagnoses considered. These considerations are based on history, physical exam, past history, reassessment and diagnostic testing. Smoking Status: Current every day smoker Constitutional: Initial Vital Signs Temperature (C) 37.2 C 05/20/17 11:14 Heart Rate 80 05/20/17 11:14 Respiratory Rate 20 05/20/17 11:14 Blood Pressure 104/73 05/20/17 11:14 O2 Sat (%) 97 05/20/17 11:14 O2 Delivery Mode Room Air Allergies/Adverse Reactions: No Known Allergies Allergy (Verified 05/20/17 11:19) Home Medications: Medication Instructions Recorded Promethazine HCl [Phenergan 25 mg [place] Q4-6PRN PRN #10 suppr 05/20/17 Rectal] Medical Decision Making - Diagnostics Imaging Results: Imaging Impressions Abdomen CT 05/20/17 11:54 Impression: 1. Nonspecific mild misting of mesentery in the central pelvis, which could be related to inflammation or trace free fluid, with no definite acute findings. 2. Concave superior endometrial contour, which could represent arcuate or septate uterus. 3. Additional findings as above. Findings discussed with Vinod Enrique MD on 05/20/2017 at 12:30. - Data Points Laboratory Results: Laboratory Results 05/20/17 11:28 05/20/17 11:28 05/20/17 05/20/17 05/20/17 12:45 11:28 11:28 WBC RBC Hgb Hct MCV MCH MCHC RDW Plt Count MPV Neut % (Auto) Lymph % (Auto) [place] % (Auto) Eos % (Auto) Baso % (Auto) Nucleat RBC Rel Count Absolute Neuts (auto) Absolute Lymphs (auto) Absolute Monos (auto) Absolute Eos (auto) Absolute Basos (auto) Absolute Nucleated RBC Immature Gran % Immature Gran # Sodium 142 mEq/L mEq/L (135-145) Potassium 3.6 mEq/L mEq/L (3.5-5.2) Chloride 102 mEq/L mEq/L (97-110) Carbon Dioxide 20 mEq/l L mEq/l (22-31) Anion Gap 20 mEq/L H mEq/L (8-16) BUN 14 mg/dL mg/dL (7-23) Creatinine 0.7 mg/dL mg/dL (0.6-1.0) Estimated GFR > 60 Glucose 106 mg/dL H mg/dL (70-100) Calcium 9.5 mg/dL mg/dL (8.5-10.4) Total Bilirubin 0.5 mg/dL mg/dL (0.1-1.4) Conjugated Bilirubin 0.2 mg/dL mg/dL (0.0-0.5) Unconjugated Bilirubin 0.3 mg/dL mg/dL (0.0-1.1) AST 21 IU/L IU/L (14-46) ALT 26 IU/L IU/L (9-52) Alkaline Phosphatase 59 IU/L IU/L (38-126) Total Protein 7.8 g/dL g/dL (6.3-8.2) Albumin 4.4 g/dL g/dL (3.5-5.0) Lipase 42 IU/L IU/L (23-300) Beta HCG, Qual NEGATIVE Urine Color YELLOW Urine Appearance CLEAR Urine pH 7.0 (5.0-7.5) Ur Specific [place] <= 1.005 (1.002-1.030) Urine Protein TRACE H (NEGATIVE) Urine Ketones 2+ H (NEGATIVE) Urine Blood 3+ H (NEGATIVE) Urine Nitrate NEGATIVE (NEGATIVE) Urine Bilirubin NEGATIVE (NEGATIVE) Urine Urobilinogen 0.2 EU EU (0.2-1.0) Ur Leukocyte Esterase NEGATIVE (NEGATIVE) Urine RBC 10-15 /hpf H /hpf (0-3) Urine WBC 0-1 /hpf /hpf (0-3) Ur Epithelial Cells 2+ /lpf H /lpf (NONE-1+) Urine Bacteria TRACE /hpf H /hpf (NONE SEEN) Urine Mucus 1+ /lpf /lpf (NONE-1+) Urine Yeast 1+ /hpf H /hpf (NONE SEEN) Urine Glucose NEGATIVE (NEGATIVE) 05/20/17 11:28 WBC 9.11 10^3/uL 10^3/uL (3.80-9.50) RBC 4.30 10^6/uL 10^6/uL (4.18-5.33) Hgb 11.1 g/dL L g/dL (12.6-16.3) Hct 35.1 % L % (38.0-47.0) MCV 81.6 fL fL (81.5-99.8) MCH 25.8 pg L pg (27.9-34.1) MCHC 31.6 g/dL L g/dL (32.4-36.7) RDW 15.0 % % (11.5-15.2) Plt Count 241 10^3/uL 10^3/uL (150-400) MPV 11.1 fL fL (8.7-11.7) Neut % (Auto) 83.5 % H % (39.3-74.2) Lymph % (Auto) 10.2 % L % (15.0-45.0) [place] % (Auto) 5.8 % % (4.5-13.0) Eos % (Auto) 0.0 % L % (0.6-7.6) Baso % (Auto) 0.2 % L % (0.3-1.7) Nucleat RBC Rel Count 0.0 % % (0.0-0.2) Absolute Neuts (auto) 7.60 10^3/uL H 10^3/uL (1.70-6.50) Absolute Lymphs (auto) 0.93 10^3/uL L 10^3/uL (1.00-3.00) Absolute Monos (auto) 0.53 10^3/uL 10^3/uL (0.30-0.80) Absolute Eos (auto) 0.00 10^3/uL L 10^3/uL (0.03-0.40) Absolute Basos (auto) 0.02 10^3/uL 10^3/uL (0.02-0.10) Absolute Nucleated RBC 0.00 10^3/uL 10^3/uL (0-0.01) Immature Gran % 0.3 % % (0.0-1.1) Immature Gran # 0.03 10^3/uL 10^3/uL (0.00-0.10) Sodium Potassium Chloride Carbon Dioxide Anion Gap BUN Creatinine Estimated GFR Glucose Calcium Total Bilirubin Conjugated Bilirubin Unconjugated Bilirubin AST ALT Alkaline Phosphatase Total Protein Albumin Lipase Beta HCG, Qual Urine Color Urine Appearance Urine pH Ur Specific [place] Urine Protein Urine Ketones Urine Blood Urine Nitrate Urine Bilirubin Urine Urobilinogen Ur Leukocyte Esterase Urine RBC Urine WBC Ur Epithelial Cells Urine Bacteria Urine Mucus Urine Yeast Urine Glucose Medications Given: Discontinued Medications Famotidine (Pepcid) 20 mg IVP EDNOW ONE Stop: 05/20/17 11:27 Last Admin: 05/20/17 11:40 Dose: 20 mg Sodium Chloride (Ns) 1,000 mls @ 0 mls/hr IV EDNOW ONE; Wide Open PRN Reason: Protocol Stop: 05/20/17 11:21 Last Admin: 05/20/17 11:27 Dose: 1,000 mls Famotidine 20 mg/ Sodium (Chloride) 102 mls @ 408 mls/hr IV EDNOW ONE Stop: 05/20/17 11:34 Last Admin: 05/20/17 11:54 Dose: Not Given Famotidine 20 mg/ Sodium (Chloride) 102 mls @ 408 mls/hr IV EDNOW ONE Stop: 05/20/17 11:39 Last Admin: 05/20/17 11:54 Dose: Not Given Sodium Chloride (Ns) 1,000 mls @ 0 mls/hr IV EDNOW ONE; Wide Open PRN Reason: Protocol Stop: 05/20/17 12:20 Last Admin: 05/20/17 12:40 Dose: 1,000 mls Ketorolac Tromethamine (Toradol) 30 mg IVP EDNOW ONE Stop: 05/20/17 11:21 Last Admin: 05/20/17 11:40 Dose: 30 mg Ondansetron HCl (Zofran) 4 mg IVP EDNOW ONE Stop: 05/20/17 11:21 Last Admin: 05/20/17 11:40 Dose: 4 mg Departure - Departure Disposition: Home, Routine, Self-Care Clinical Impression: Abdominal pain, Vomiting Condition: Good Instructions: Acute Nausea and Vomiting (ED), Acute Abdominal Pain (ED) Additional Instructions: Read and follow provided instructions. Follow-up with your primary care physician in 2-3 days for re-evaluation at [facility]. Take medication as prescribed for nausea. Return to the emergency department for worsening symptoms, worsening abdominal pain, vomiting and inability to keep fluids down despite medications, blood in your stool or other serious concerns. Referrals: CORINA CARDENAS,. [Primary Care Provider] - As per Instructions Stand Alone Forms: Work Excuse Prescriptions: Promethazine HCl [Phenergan Rectal] 25 mg [place] Q4-6PRN PRN #10 suppr PRN Reason: Nausea/Vomiting, Can'T Take Po
[2017-05-20 11:38] LABS: PLATELET COUNT 241 10^3/uL (150-400)
[2017-05-20] MEDS ORDERED: IOPAMIDOL (ISOVUE-300) 100 ML BTL ONE (12:00)
[2017-05-20 12:43] VITALS: BP 96/53; PULSE 60; RESP 14; TEMP 98.8; O2SAT 100
== END 2017-05-20 13:19 | disposition home or self-care (01) ==
LOC: CED 11:03
DX: R10.31 Right lower quadrant pain (principal); R11.10 Vomiting, unspecified; F17.200 Nicotine dependence, unspecified, uncomplicated; E86.9 Volume depletion, unspecified
CPT/HCPCS: 74177-PO; 80048-PO; 80076-PO; 81003-PO; 81015-PO; 83690-PO; 84703-PO; 85025-PO; 96374; J1885; J2405; Q9967

== ENCOUNTER 2018-01-10 20:31 | Emergency (ER) | payer MEDICAID ==
[2018-01-10] MEDS ORDERED: NS 1,000 ML IV ONE (21:06)
--- NOTE | 2018-01-10 21:10 | EDPHY ---
HPI/HX/ROS/PE/MDM Narrative: CHIEF COMPLAINT: Abdominal pain, vomiting, diarrhea HPI: The patient is a 27 y/o female with a history of cyclic vomiting and pancreatitis complaining of abdominal pain, vomiting, and diarrhea. She has been seen in this emergency department numerous times for cyclic vomiting. REVIEW OF SYSTEMS: Aside from elements discussed in the HPI, a comprehensive 10 system review of systems is otherwise negative. PMH: Cyclic vomiting thought to be secondary to marijuana use, pancreatitis, anemia, history of alcohol abuse. SOCIAL HISTORY: Lives in [place], single employed PHYSICAL EXAM: General: Patient is alert, in no acute distress. ENT: Eyes are normal to inspection. ENT inspection normal. Neck: Normal inspection. Full range of motion. Respiratory: No respiratory distress. Breath sounds normal bilaterally. Cardiovascular: Regular rate and rhythm. Strong peripheral pulses. Normal cap refill. Abdomen: The abdomen is nontender to palpation. There are no peritoneal signs. There are normal bowel sounds. Back: Normal to inspection. No tenderness to palpation. Skin: Normal color. No rash. Warm and dry. Extremities: Normal appearance. Full range of motion. Neuro: Oriented x3. Normal motor function. Normal sensory function. General Time Seen by Provider: 01/10/18 21:08 Initial Vital Signs: Initial Vital Signs Temperature (C) 37.1 C 01/10/18 20:39 Heart Rate 68 01/10/18 20:39 Respiratory Rate 18 01/10/18 20:39 Blood Pressure 135/76 H 01/10/18 20:39 O2 Sat (%) 98 01/10/18 20:39 O2 Delivery Mode Room Air Allergies/Adverse Reactions: No Known Allergies Allergy (Verified 05/20/17 11:19) Home Medications: Medication Instructions Recorded Promethazine HCl [Phenergan 25 mg [place] Q4-6PRN PRN #10 suppr 05/20/17 Rectal] Departure - Departure Referrals: STEPHANI SANTORO [Other] - As per Instructions Report Scribed for: Vasquez Matthews Report Scribed by: Ирина Orozco Date of Report: 01/10/18 Time of Report: 21:10 Physician Review and Approval Statement: Portions of this note were transcribed by an ED scribe. I personally performed the history, physical exam, and medical decision making; and confirm the accuracy of the information in the transcribed note.
[2018-01-10 21:26] LABS: PLATELET COUNT 288 10^3/uL (150-400)
[2018-01-10] MEDS ORDERED: LORazepam 2 MG/ML INJ IVP ONE (21:27)
[2018-01-10] MEDS ORDERED: PROMETHAZINE HCL 25 MG/ML INJ IVP ONE (21:27)
--- NOTE | 2018-01-10 21:28 | EDPHY ---
H & P Stated Complaint: Epigastric abd pain, started after eating greenlandic, n/v/d Time Seen by Provider: 01/10/18 21:08 HPI/ROS: HPI: This is a 27-year-old female who presents with Chief Complaint: Epigastric abd pain, started after eating greenlandic, n/v/d Location: Epigastric Quality: Nausea, vomiting Duration: Hours prior to arrival Signs and Symptoms: no fever, + nausea, + vomiting 2-3 times, no hematemesis, no blood in stool, no abdominal bloating,+ diarrhea x 1, no back pain, no urinary symptoms, no vaginal bleeding/discharge, no indigestion, no chest pain, no shortness of breath Timing: Acute Severity: Moderate Context: Patient has a history of pancreatitis, marijuana use, presents accompanied by her boyfriend with complaints of eating Yi food approximately 2 hr a go and then starting to feel nauseous with 2 episodes of vomiting nonbloody in nature and 1 episode of diarrhea with no blood in stool. Boyfriend at bedside reports that his stomach"does not feel great." She complains of abdominal cramping but no actual abdominal pain. Modifying Factors: None Comment: ROS: A comprehensive 10 system review of systems is otherwise negative aside from elements mentioned in the history of present illness. MEDICAL/SURGICAL/SOCIAL HISTORY: Medical history: Pancreatitis. LMP 1-2 weeks ago. Surgical history: Denies Social history: Marijuana user. Family history noncontributory. CONSTITUTIONAL: Nontoxic-appearing young adult white female, awake and alert, anxious HEENT: Atraumatic and normocephalic, PERRL, EOMI. Nares patent; no rhinorrhea; no nasal mucosal edema. Tympanic membranes clear. Oropharynx clear, no exudate and moist pink mucosa. Airway patent. No lymphadenopathy. No meningismus. Cardiovascular: Normal S1/S2, regular rate, regular rhythm, without murmur rub or gallop. PULMONARY/CHEST: Symmetrical and nontender. Clear to auscultation bilaterally. Good air movement. No accessory muscle usage. ABDOMEN: Soft, nondistended, nontender, no rebound, no guarding, no peritoneal signs, no masses or organomegaly. No CVAT. Hyperactive bowel sounds x4 EXTREMITIES: 2/2 pulses, strength 5/5, no deformities, no clubbing, no cyanosis or edema. NEUROLOGICAL: no focal neuro deficits. GCS 15. SKIN: Warm and dry, no erythema. no rash. Good capillary refill. Source: Patient Exam Limitations: No limitations - Personal History LMP (Females 10-55): 8-14 Days Ago Current Tetanus Diphtheria and Acellular Pertussis (TDAP): Yes - Medical/Surgical History Hx Asthma: No Hx Chronic Respiratory Disease: No Hx Diabetes: No Hx Cardiac Disease: No Hx Renal Disease: No Hx Cirrhosis: No Hx Alcoholism: No Hx HIV/AIDS: No Hx Splenectomy or Spleen Trauma: No Other PMH: med hx-pancreatitis. surg-none. Marijuana use - Social History Smoking Status: Current every day smoker Constitutional: Initial Vital Signs Temperature (C) 37.1 C 01/10/18 20:39 Heart Rate 68 01/10/18 20:39 Respiratory Rate 18 01/10/18 20:39 Blood Pressure 135/76 H 01/10/18 20:39 O2 Sat (%) 98 01/10/18 20:39 O2 Delivery Mode Room Air Allergies/Adverse Reactions: No Known Allergies Allergy (Verified 05/20/17 11:19) Home Medications: Medication Instructions Recorded Promethazine HCl [Phenergan 25 mg [place] Q4-6PRN PRN #10 suppr 05/20/17 Rectal] Ondansetron Odt [Zofran Odt 4 mg 4 mg PO Q4 PRN #12 tab 01/10/18 (*)] Medical Decision Making ED Course/Re-evaluation: Vital signs reviewed and stable upon arrival. Laboratory studies, IV fluids, IV medications ordered Abdomen is soft and nontender. Doubt surgical process. No indication for imaging. 0: Given 1 L normal saline, IV promethazine, IV Ativan Labs reviewed. No signs of acute kidney injury, electrolyte imbalance, pancreatitis. 5: Reassessed patient who reports relief of symptoms. Passed p.o. Trial. Given promethazine prepack and prescription for Zofran. This patient was seen under the supervision of my secondary supervising physician. I evaluated care for this patient independently. Discussed this patient with Dr. Matthews. Differential Diagnosis: Differential diagnosis includes but is not limited to small-bowel obstruction, gastroenteritis, ischemic colitis, cyclic vomiting syndrome, gastritis. - Data Points Laboratory Results: Laboratory Results 01/10/18 21:17 01/10/18 21:17 01/10/18 01/10/1801/10/18 21:17 21:17 21:17 WBC 14.23 10^3/uL H 10^3/uL (3.80-9.50) RBC 4.35 10^6/uL 10^6/uL (4.18-5.33) Hgb 11.1 g/dL L g/dL (12.6-16.3) Hct 35.3 % L % (38.0-47.0) MCV 81.1 fL L fL (81.5-99.8) MCH 25.5 pg L pg (27.9-34.1) MCHC 31.4 g/dL L g/dL (32.4-36.7) RDW 15.6 % H % (11.5-15.2) Plt Count 288 10^3/uL 10^3/uL (150-400) MPV 11.7 fL fL (8.7-11.7) Neut % (Auto) 79.6 % H % (39.3-74.2) Lymph % (Auto) 15.4 % % (15.0-45.0) [place] % (Auto) 4.0 % L % (4.5-13.0) Eos % (Auto) 0.1 % L % (0.6-7.6) Baso % (Auto) 0.4 % % (0.3-1.7) Nucleat RBC Rel Count 0.0 % % (0.0-0.2) Absolute Neuts (auto) 11.33 10^3/uL H 10^3/uL (1.70-6.50) Absolute Lymphs (auto) 2.19 10^3/uL 10^3/uL (1.00-3.00) Absolute Monos (auto) 0.57 10^3/uL 10^3/uL (0.30-0.80) Absolute Eos (auto) 0.02 10^3/uL L 10^3/uL (0.03-0.40) Absolute Basos (auto) 0.05 10^3/uL 10^3/uL (0.02-0.10) Absolute Nucleated RBC 0.00 10^3/uL 10^3/uL (0-0.01) Immature Gran % 0.5 % % (0.0-1.1) Immature Gran # 0.07 10^3/uL 10^3/uL (0.00-0.10) Sodium 141 mEq/L mEq/L (135-145) Potassium 3.5 mEq/L mEq/L (3.3-5.0) Chloride 103 mEq/L mEq/L (97-110) Carbon Dioxide 23 mEq/l mEq/l (22-31) Anion Gap 15 mEq/L H mEq/L (6-14) BUN 20 mg/dL mg/dL (7-23) Creatinine 0.7 mg/dL mg/dL (0.6-1.0) Estimated GFR > 60 Glucose 144 mg/dL H mg/dL (70-100) Calcium 10.3 mg/dL mg/dL (8.5-10.4) Total Bilirubin 0.7 mg/dL mg/dL (0.1-1.4) Conjugated Bilirubin 0.2 mg/dL mg/dL (0.0-0.5) Unconjugated Bilirubin 0.5 mg/dL mg/dL (0.0-1.1) AST 31 IU/L IU/L (14-46) ALT 31 IU/L IU/L (9-52) Alkaline Phosphatase 74 IU/L IU/L (38-126) Total Protein 8.3 g/dL H g/dL (6.3-8.2) Albumin 4.9 g/dL g/dL (3.5-5.0) Lipase 94 IU/L IU/L (23-300) Beta HCG, Qual NEGATIVE Medications Given: Discontinued Medications Sodium Chloride (Ns) 1,000 mls @ 0 mls/hr IV EDNOW ONE; Wide Open PRN Reason: Protocol Stop: 01/10/18 21:07 Last Admin: 01/10/18 21:35 Dose: 1,000 mls Lorazepam (Ativan Injection) 1 mg IVP EDNOW ONE Stop: 01/10/18 21:28 Last Admin: 01/10/18 21:35 Dose: 1 mg Promethazine HCl (Phenergan) 12.5 mg IVP ONCE ONE Stop: 01/10/18 21:28 Last Admin: 01/10/18 21:35 Dose: 12.5 mg Promethazine HCl (Phenergan 25 Mg Prepack #4) 1 btl TAKEHOME EDNOW ONE Stop: 01/10/18 23:40 Last Admin: 01/10/18 23:43 Dose: 1 btl Departure - Departure Disposition: Home, Routine, Self-Care Clinical Impression: Nausea and vomiting Qualifiers: Vomiting type: unspecified Vomiting Intractability: non-intractable Qualified Code(s): R11.2 - Nausea with vomiting, unspecified Condition: Good Instructions: Acute Nausea and Vomiting (ED) Additional Instructions: Consume a minimum of 8-10 glasses of water or electrolyte fluid replacement drinks that include Gatorade, Powerade, Pedialyte. Eat a bland diet for the next 48 hours and then slowly advance as tolerated. Take Zofran 1 tab every 4 hours as needed for nausea, vomiting. Take Imodium [id number] as needed for diarrhea. Return to the Emergency Room if symptoms do not resolve in the next 48-72 hours , you spike a fever > 102 F, or experience intractable abdominal pain/nausea/ vomiting. Referrals: STEPHANI SANTORO [Other] - As per Instructions Prescriptions: Ondansetron Odt [Zofran Odt 4 mg (*)] 4 mg PO Q4 PRN #12 tab PRN Reason: Nausea/Vomiting, Use 1st
[2018-01-10] MEDS ORDERED: PROMETHAZINE 25MG SUPP PREPK#4 BTL TAKEHOME ONE (22:32)
[2018-01-10] MEDS ORDERED: PROMETHAZINE 25 MG PREPACK #4 BTL TAKEHOME ONE ×2 (23:37→23:39)
[2018-01-10 23:41] VITALS: BP 107/86
== END 2018-01-10 23:53 | disposition home or self-care (01) ==
DX: R10.13 Epigastric pain (principal); R11.2 Nausea with vomiting, unspecified; E86.9 Volume depletion, unspecified; F17.200 Nicotine dependence, unspecified, uncomplicated; Z87.19 Personal history of other diseases of the digestive system
CPT/HCPCS: 96374; J2060; J2550

== ENCOUNTER 2018-03-08 11:17 | Emergency (ER) | payer MEDICAID ==
[2018-03-08] MEDS ORDERED: NS 1,000 ML IV ONE (11:39)
[2018-03-08] MEDS ORDERED: FAMOTIDINE 20 MG in NS 100 ML IV ONE (11:39)
[2018-03-08] MEDS ORDERED: ONDANSETRON 4 MG/2 ML VIAL IVP ONE (11:39)
[2018-03-08] MEDS ORDERED: CAPSACIAN 0.075% CREAM TP ONE (11:40)
[2018-03-08] MEDS ORDERED: HALOPERIDOL LACT 5 MG/ML INJ IVP ONE (11:41)
--- NOTE | 2018-03-08 13:01 | EDPHY ---
H & P Time Seen by Provider: 03/08/18 11:39 HPI/ROS: HPI Nausea, vomiting, abdominal cramping. 28-year-old female presents to the emergency department by private vehicle with her mother. This patient has a history of cyclic vomiting/cannabinoid hyperemesis syndrome. She has been seen in our emergency department multiple times in the past with complaints related to this. She states that she started developing nausea followed by vomiting and crampy diffuse abdominal discomfort this morning. She reports that she has been vomiting most of the morning and for the last hour to has been dry heaving. No diarrhea. No bloody or melenic stool. She denies foreign travel. No ill contacts. No change in diet. She states that her presentation now is identical to previous exacerbations of her cannabinoid hyperemesis syndrome. ROS: Constitutional: No fever, no chills. No weakness. Eyes: No discharge. No changes in vision. ENT: No sore throat. No nasal congestion or rhinorrhea. Respiratory: No cough. No shortness of breath. Cardiac: No chest pain, no palpitations. Gastrointestinal: As above, no diarrhea. Genitourinary: No hematuria. No dysuria or increased frequency with urination. Musculoskeletal: No back pain. No neck pain. No myalgias or arthralgias. Skin: No rashes. Neurological: No headache. No focal weakness or altered sensation. Past medical history: Pancreatitis. As above. Social history: Smokes marijuana. Here with father. No alcohol Physical Exam: General Appearance: Alert, she appears uncomfortable but not in distress. Intermittently dry heaving. This patient is responding to questions appropriately and in full sentences. This patient appears well-hydrated and well-nourished. Eyes: Pupils equal and round no pallor or injection. No lid edema, erythema or injection. Respiratory: There are no retractions, lungs are clear to auscultation with good air movement bilaterally. Cardiovascular: Regular rate and rhythm. No murmur. Gastrointestinal: Abdomen is soft with mild and vague tenderness on palpation throughout, no masses, bowel sounds normal. No focal tenderness at McBurney's point. No Nam sign. Neurological: Motor sensory function is grossly intact. Cranial nerves are normal. Gait is normal. Skin: Warm and dry, no rashes. Musculoskeletal: Neck is supple and nontender. Extremities are symmetrical. All joints range without pain or impingement. Psychiatric: No agitation. No depression. Database: EKG: Imaging: Procedures: Emergency department course: Triage vital signs reviewed and are normal. An IV was placed. She was started on IV normal saline with 1-2 L to be given over the next 1-2 hours. She refuses capsaicin cream is a treatment. She will be given 20 mg of IV Pepcid, 4 mg of IV Zofran and 2.5 mg of IV Haldol. 12:40 p.m., patient re-evaluated. She is sleeping comfortably at this time. 1:10 p.m., the patient was re-evaluated, sleeping but easily arousable. She is feeling better. Repeat abdominal exam she is soft, nontender nondistended. She is able to tolerate oral fluids at this time. She is sleepy from the medication. She does feel comfortable going home with her father who will drive her. I will prescribe her Zofran as well as Phenergan. I discussed cessation of marijuana. Follow-up and return to emergency department precautions reviewed with her. All of her questions were answered. She was discharged home in good condition with her father. Differential Diagnosis: The differential diagnosis on this patient includes but is not limited to cyclic vomiting syndrome, cannabis hyperemesis syndrome. Cholecystitis, pancreatitis, bowel obstruction, appendicitis, other acute surgical etiology unlikely. This represents a partial list of diagnoses considered. These considerations are based on history, physical exam, past history, reassessment and diagnostic testing. Smoking Status: Current every day smoker Constitutional: Initial Vital Signs Temperature (C) 37.2 C 03/08/18 11:24 Heart Rate 87 03/08/18 11:24 Respiratory Rate 18 03/08/18 11:24 Blood Pressure 122/87 H 03/08/18 11:24 O2 Sat (%) 99 03/08/18 11:24 O2 Delivery Mode Room Air Allergies/Adverse Reactions: No Known Allergies Allergy (Verified 03/08/18 11:23) Home Medications: Medication Instructions Recorded Promethazine HCl [Phenergan 25 mg [place] Q4-6PRN PRN #10 suppr 05/20/17 Rectal] Ondansetron Odt [Zofran Odt 4 mg 4 mg PO Q4 PRN #12 tab 01/10/18 (*)] Ondansetron Odt [Zofran Odt 4 mg 4 mg PO Q4PRN PRN #10 tab 03/08/18 (*)] Promethazine HCl [Phenergan 25mg 25 mg PO Q4-6PRN PRN #12 tab 03/08/18 (*)] Medical Decision Making - Data Points Laboratory Results: 03/08/18 12:02 POC Sodium 141 mEq/L mEq/L (135-145) POC Potassium 3.3 mEq/L mEq/L (3.3-5.0) POC Chloride 108.0 mEq/L mEq/L (97-110) POC Total CO2 24 mEq/L mEq/L (22-31) POC BUN 14 mg/dL mg/dL (7-23) POC Creatinine 0.6 mg/dL mg/dL (0.6-1.0) POC Glucose 113 mg/dL H mg/dL (70-100) POC Calcium 9.8 mg/dL mg/dL (8.5-10.4) POC Total Bilirubin 0.7 mg/dL mg/dL (0.1-1.4) POC AST 22 IU/L IU/L (14-46) POC ALT 15 IU/L IU/L (9-52) POC Alk Phosphatase 68 IU/L IU/L (38-126) POC Total Protein 7.3 g/dL g/dL (6.3-8.2) POC Albumin 4.2 g/dL g/dL (3.5-5.0) Medications Given: Discontinued Medications Capsaicin (Capsacian 0.075%) 1 anastacia TP EDNOW ONE Stop: 03/08/18 11:41 Last Admin: 03/08/18 12:03 Dose: Not Given Haloperidol Lactate (Haldol Injection) 2.5 mg IVP EDNOW ONE Stop: 03/08/18 11:42 Last Admin: 03/08/18 11:58 Dose: 2.5 mg Sodium Chloride (Ns) 1,000 mls @ 0 mls/hr IV EDNOW ONE; Wide Open PRN Reason: Protocol Stop: 03/08/18 11:40 Last Admin: 03/08/18 11:55 Dose: 1,000 mls Famotidine 20 mg/ Sodium (Chloride) 102 mls @ 408 mls/hr IV EDNOW ONE Stop: 03/08/18 11:53 Last Admin: 03/08/18 12:02 Dose: 102 mls Ondansetron HCl (Zofran) 4 mg IVP EDNOW ONE Stop: 03/08/18 11:40 Last Admin: 03/08/18 11:56 Dose: 4 mg Point of Care Test Results: Chemistry 03/08/18 12:02 POC Sodium 141 mEq/L mEq/L (135-145) POC Potassium 3.3 mEq/L mEq/L (3.3-5.0) POC Chloride 108.0 mEq/L mEq/L (97-110) POC Total CO2 24 mEq/L mEq/L (22-31) POC BUN 14 mg/dL mg/dL (7-23) POC Creatinine 0.6 mg/dL mg/dL (0.6-1.0) POC Glucose 113 mg/dL H mg/dL (70-100) POC Calcium 9.8 mg/dL mg/dL (8.5-10.4) POC Total Bilirubin 0.7 mg/dL mg/dL (0.1-1.4) POC AST 22 IU/L IU/L (14-46) POC ALT 15 IU/L IU/L (9-52) POC Alk Phosphatase 68 IU/L IU/L (38-126) POC Total Protein 7.3 g/dL g/dL (6.3-8.2) POC Albumin 4.2 g/dL g/dL (3.5-5.0) Urine Collection Date 03/08/18 Collection Time 12:05 HCG Results Negative Urine Dip Collection Date 03/08/18 Collection Time 12:05 Specific [place] (1.002-1.030) 1.020 PH (5.0-7.5) 8.5 Leukocytes (Negative) Negative Nitrites (Negative) Negative Protein (Negative) Negative Glucose (Negative) Negative Ketones (Negative) Negative Urobilnogen (0.2-1.0 EU) 0.2 Bilirubin (Negative) Negative Blood (Negative) Negative Departure - Departure Disposition: Home, Routine, Self-Care Clinical Impression: Cannabinoid hyperemesis syndrome Condition: Good Instructions: Cyclic Vomiting Syndrome (ED) Additional Instructions: Read and follow provided instructions. Follow-up with your primary care physician in 1-2 days for re-evaluation. Take medication as prescribed for nausea. Return to the emergency department for worsening symptoms, vomiting and inability to keep fluids down despite medications, worsening abdominal pain or other serious concerns. Referrals: STEPHANI MCKINNEY [Primary Care Provider] - As per Instructions Prescriptions: Ondansetron Odt [Zofran Odt 4 mg (*)] 4 mg PO Q4PRN PRN #10 tab PRN Reason: For Nausea & Vomiting Promethazine HCl [Phenergan 25mg (*)] 25 mg PO Q4-6PRN PRN #12 tab PRN Reason: For Nausea & Vomiting
[2018-03-08 13:14] VITALS: BP 130/77
== END 2018-03-08 13:26 | disposition home or self-care (01) ==
LOC: CED 11:17
DX: R11.2 Nausea with vomiting, unspecified (principal); F12.188 Cannabis abuse with other cannabis-induced disorder; F17.200 Nicotine dependence, unspecified, uncomplicated
CPT/HCPCS: 80053-PO; 96374; J1630; J2405

== ENCOUNTER 2018-07-22 16:30 | Emergency (ER) | payer SELFPAY ==
[2018-07-22] MEDS ORDERED: ONDANSETRON 4 MG/2 ML VIAL ONE (16:48)
[2018-07-22] MEDS ORDERED: NS 1,000 ML IV ONE (16:51)
[2018-07-22] MEDS ORDERED: ONDANSETRON 4 MG/2 ML VIAL IVP ONE (16:51)
[2018-07-22] MEDS ORDERED: PROMETHAZINE HCL 25 MG/ML INJ IVP ONE (16:51)
[2018-07-22] MEDS ORDERED: HALOPERIDOL LACT 5 MG/ML INJ IVP ONE (16:52)
--- NOTE | 2018-07-22 16:54 | EDPHY ---
HPI/HX/ROS/PE/MDM Narrative: CHIEF COMPLAINT: Vomiting HPI: The patient is a 28-year-old female with known cyclic vomiting syndrome, possibly secondary to cannabinoid hyperemesis syndrome. She presents to the emergency department complaining of nausea and vomiting for 48 hr. She complains of diffuse abdominal cramping. She states this is very similar to her other presentations for vomiting and abdominal pain. She denies fever, recent antibiotic use or trauma. She states that she has been unable to hold down Pedialyte and has no prescription anti nausea medications at home to try. REVIEW OF SYSTEMS: Aside from elements discussed in the HPI, a comprehensive 10-point review of systems was reviewed and is negative. PMH: History of cyclic vomiting and frequent ED visits related to same. SOCIAL HISTORY: Smokes marijuana, denies that marijuana is the cause of her symptoms. PHYSICAL EXAM: General:Patient is alert, in no acute distress. Actively vomiting. Generally well-appearing. ENT:Eyes are normal to inspection. ENT inspection normal. Neck: Normal inspection. Full range of motion. Respiratory:No respiratory distress. Breath sounds normal bilaterally. Cardiovascular: Regular rate and rhythm. Strong peripheral pulses. Normal cap refill. Abdomen:The abdomen is nontender to palpation. There are no peritoneal signs. There are normal bowel sounds. Back: Normal to inspection. No tenderness to palpation. Skin: Normal color. No rash. Warm and dry. Extremities: Normal appearance. Full range of motion. Neuro: Oriented x3. Normal motor function. Normal sensory function. MDM: This patient was treated with IV normal saline, 2.5 mg of IV Haldol, 25 mg of IV Phenergan, 25 mg of Benadryl and 4 mg of Zofran. On re-evaluation at 5:30 p.m., the patient states her symptoms have resolved and she is tolerating ice chips by mouth without any difficulty. Her basic metabolic panel is negative as is her test. Given the similarity of this episode prior cyclic vomiting episodes as well as w rapid resolution of symptoms with treatment, I do not think further imaging or workup is indicated. Patient is comfortable this plan. I see no evidence of appendicitis, bowel obstruction, bowel perforation, cholecystitis or sepsis. - Data Points Laboratory Results: 07/22/18 17:00 POC Sodium 139 mEq/L mEq/L (135-145) POC Potassium 3.3 mEq/L mEq/L (3.3-5.0) POC Chloride 102.0 mEq/L mEq/L (97-110) POC Total CO2 22 mEq/L mEq/L (22-31) POC BUN 19 mg/dL mg/dL (7-23) POC Creatinine 0.8 mg/dL mg/dL (0.6-1.0) POC Glucose 97 mg/dL mg/dL (70-100) POC Calcium 9.6 mg/dL mg/dL (8.5-10.4) Medications Given: Discontinued Medications Diphenhydramine HCl (Benadryl Injection) 25 mg IVP EDNOW ONE Stop: 07/22/18 16:53 Last Admin: 07/22/18 17:01 Dose: 25 mg Haloperidol Lactate (Haldol Injection) 2.5 mg IVP EDNOW ONE Stop: 07/22/18 16:53 Last Admin: 07/22/18 17:02 Dose: 2.5 mg Sodium Chloride (Ns) 1,000 mls @ 0 mls/hr IV EDNOW ONE; Wide Open PRN Reason: Protocol Stop: 07/22/18 16:52 Last Admin: 07/22/18 17:07 Dose: 1,000 mls Ondansetron HCl (Zofran) 4 mg IVP EDNOW ONE Stop: 07/22/18 16:52 Last Admin: 07/22/18 16:58 Dose: 4 mg Promethazine HCl (Phenergan) 12.5 mg IVP EDNOW ONE Stop: 07/22/18 16:52 Last Admin: 07/22/18 17:07 Dose: 12.5 mg Point of Care Test Results: Chemistry 07/22/18 17:00 POC Sodium 139 mEq/L mEq/L (135-145) POC Potassium 3.3 mEq/L mEq/L (3.3-5.0) POC Chloride 102.0 mEq/L mEq/L (97-110) POC Total CO2 22 mEq/L mEq/L (22-31) POC BUN 19 mg/dL mg/dL (7-23) POC Creatinine 0.8 mg/dL mg/dL (0.6-1.0) POC Glucose 97 mg/dL mg/dL (70-100) POC Calcium 9.6 mg/dL mg/dL (8.5-10.4) Basic Metabolic Panel [facility] Collection Date 165 BMP Collection Time 16:55 Urine Collection Date 07/22/18 Collection Time 17:33 HCG Results Negative General Time Seen by Provider: 07/22/18 16:48 Initial Vital Signs: Initial Vital Signs Temperature (C) 37.1 C 07/22/18 16:40 Heart Rate 61 07/22/18 16:40 Respiratory Rate 16 07/22/18 16:40 Blood Pressure 143/88 H 07/22/18 16:40 O2 Sat (%) 95 07/22/18 16:40 Allergies/Adverse Reactions: No Known Allergies Allergy (Verified 07/22/18 16:39) Home Medications: Medication Instructions Recorded Ondansetron Odt [Zofran Odt] 4 mg PO Q4PRN PRN #10 tab 07/22/18 Departure - Departure Disposition: Home, Routine, Self-Care Clinical Impression: Cyclical vomiting with nausea Qualifiers: Vomiting Intractability: unspecified Qualified Code(s): G43.A0 - Cyclical vomiting, not intractable Condition: Good Instructions: Cyclic Vomiting Syndrome (ED) Additional Instructions: Follow-up with your primary doctor within 72 hours. Return to the Emergency Department for fever, chest pain, shortness of breath, increasing pain or other worsening of condition.
[2018-07-22 18:10] VITALS: BP 113/74
== END 2018-07-22 18:00 | disposition home or self-care (01) ==
LOC: CED 16:30
DX: G43.A0 Cyclical vomiting, in migraine, not intractable (principal); E86.9 Volume depletion, unspecified
CPT/HCPCS: 80048-ER; 81025-ER; 96361-ER; 96374-ER; 96375-ER; 99284-ER; J1200; J1630; J2405; J2550